=== PATIENT | male | born 1980 | race Caucasian/White ===

== ENCOUNTER → 2018-09-21 10:11 | Outpatient (POV) | payer BC, SELFPAY | PROVIDERS: Visit Provider Dermatology | DX: Z00.00 Encounter for general adult medical examination without abnormal findings (principal) ==

== ENCOUNTER → 2019-01-04 08:49 | Outpatient (POV) | payer BC, SELFPAY | PROVIDERS: Visit Provider Dermatology | DX: Z00.00 Encounter for general adult medical examination without abnormal findings (principal) ==

== ENCOUNTER → 2019-12-01 16:31 | Outpatient (CLI) | payer BC, SELFPAY ==
--- NOTE | 2019-12-01 16:35 | CT_ITS ---
PROCEDURE: CT ABDOMEN PELVIS W CON CLINICAL INDICATION: RLQ PAIN Right lower quadrant pain with nausea, periumbilical pain COMPARISON: No exams were available for comparison TECHNIQUE: IV Contrast: 75ML OPTIRAY 350 Oral Contrast None Axial images obtained with sagittal and coronal reformats. All CT scans at the facility use one or more dose reduction, viz: automated exposure control, ma/kV adjustment per patient size (including targeted exams where dose is matched to indication, i.e. head), or iterative reconstruction technique. FINDINGS: LOWER THORAX: The ABDOMEN & PELVIS: The liver, spleen, adrenal glands, pancreas, and kidneys have an unremarkable appearance. Post cholecystectomy change. No intestinal obstruction or free air. No evidence of appendicitis. No pelvic mass abnormal fluid collection or focal inflammatory change. No evidence diverticulitis. No acute bony finding. IMPRESSION: No acute finding Dictated b Sulaiman Kenny MD 12/02/2019 05:18 Sulaiman Kenny MD in [facility] 12/02/2019 05:18
== END ==
PROVIDERS: PCP Physician Assistant; Visit Provider Physician Assistant
DX: R10.31 Right lower quadrant pain (principal)
CPT/HCPCS: 74177; Q9967

== ENCOUNTER → 2020-03-05 08:13 | Outpatient (CLI) | payer BC, SELFPAY ==
--- NOTE | 2020-03-05 08:28 | US_ITS ---
PROCEDURE: US ABDOMEN LIMITED CLINICAL INDICATION: ABD PAIN COMPARISON: No exams were available for comparison FINDINGS: PANCREAS: Unremarkable. No obvious mass or abnormal fluid collection. No ductal dilatation LIVER: No focal liver lesions demonstrated. Homogeneous echogenicity. No intrahepatic biliary ductal dilatation evident. There is appropriate direction of blood flow within a non dilated portal vein RIGHT KIDNEY: Unremarkable. Normal size and echogenicity. No hydronephrosis GALLBLADDER: There has been a prior cholecystectomy. Common bile duct is normal at 2 mm. IMPRESSION: Prior cholecystectomy otherwise negative Dictated by: Sulaiman Kenny MD 03/05/2020 16:23 Sulaiman Kenny MD in [facility] 03/05/2020 16:23
== END ==
PROVIDERS: PCP Physician Assistant; Visit Provider Nurse Practitioner Family
DX: R10.11 Right upper quadrant pain (principal)
CPT/HCPCS: 76705

== ENCOUNTER 2024-03-10 06:16 | Outpatient (CLI) | payer BC, SELFPAY ==
--- NOTE | 2024-03-10 | CT_ITS ---
FINAL REPORT CLINICAL HISTORY: .left flank pain COMPARISON: None FINDINGS: Axial CT images of the abdomen and pelvis were obtained without intravenous contrast. Coronal reformatted images were also obtained.This study was performed with techniques to keep radiation doses as low as reasonably achievable (ALARA). Individualized dose reduction techniques using automated exposure control or adjustment of mA and/or kV according to the patient's size were employed. Abdomen:The lung bases are clear. There is no evidence of renal stone or hydronephrosis. Postcholecystectomy. The liver, spleen and pancreas have an unremarkable, unenhanced appearance. No mass or adenopathy is seen. No inflammatory process is identified. Pelvis: Images of the pelvis reveal no evidence of ureteral dilation or ureteral stone. The appendix is normal. There are small inguinal hernias containing fat. No mass or abnormal fluid collection is identified. IMPRESSION: No renal or ureteral stone, or hydronephrosis. No mass or inflammatory process. Reviewed, Interpreted and Dictated by Juanito Carrera III, MD Transcribed by Shira Amado Authenticated and [facility]
== END 2024-03-10 23:59 | disposition home or self-care (01) ==
PROVIDERS: PCP Family Medicine; Visit Provider Family Medicine
DX: R10.9 Unspecified abdominal pain (principal); R31.29 Other microscopic hematuria
CPT/HCPCS: 74176